=== PATIENT | female | born 1945 | race Asian ===

== ENCOUNTER 2016-12-06 08:14 | Emergency (ER) | payer OTHER ==
[~2016-12-06] VITALS: Ht 157.5 cm; Wt 49.9 kg
[2016-12-06] MEDS ORDERED: SODIUM CHLORIDE 0.9% 1,000 ML IV ONE ×2 (09:09)
[2016-12-06 09:23] LABS: Base Excess -4.4 mmol/L (-2.0-2.0); Blood 02Sat 97.6 % (96-100); Blood COHb 0.3 % (0.5-1.5); Blood MetHb 0.1 % (0.0-1.5); HCO3 20.2 mmol/L (22-26.0); HHb 2.4 % (0.0-5.0); MODE NASAL CANNULA; O2Hb 97.2 % (94.0-97.0); PCO2 35.7 mmHg (35.0-45.0); PCO2(T) 35.7 mmHg (35.0-45.0); PO2 144.4 mmHg (80.0-100.0); PO2(T) 144.4 mmHg (80.0-100.0); Sample Type Arterial
[2016-12-06] MEDS ORDERED: MIDAZOLAM DRIP 50 mg/50mL 50 ML IV ONE (09:34)
[2016-12-06] MEDS ORDERED: ETOMIDATE (2MG/ML) 20ML VIAL IV ONE ×2 (09:34→09:45)
[2016-12-06] MEDS ORDERED: MIDAZOLAM DRIP 50 mg/50mL 50 ML IV SCH (09:37)
[2016-12-06 09:39] LABS: Urine RBC None Seen /hpf (0 - 4)
[2016-12-06 09:50] LABS: Hematocrit 37.3 % (36.0-46.0); Hemoglobin 12.3 g/dL (12.2-16.2); Mean Corpuscular Hemoglobin 30.3 pg (28.0-32.0); Mean Corpuscular Volume 91.8 fL (80.0-100.0); Platelet Count (auto) 265 10^3/uL (140-450); Red Cell Distribution Width 12.5 % (11.8-14.3); White Blood Cell 16.4 10^3/uL (4.4-10.8)
[2016-12-06 09:54] LABS: Urine Bilirubin Negative (Negative); Urine Blood Negative /uL (Negative); Urine Color Yellow (Yellow); Urine Glucose 4+ mg/dL (Normal); Urine Hyaline Cast FEW /lpf (0 - 2); Urine Ketone 1+ (Negative); Urine Mucus FEW (None Seen); Urine Nitrite Negative (Negative); Urine Urobilinogen Normal (Negative)
[2016-12-06 09:58] LABS: Metamyelocytes % 0; Myelocytes % 0; Promyelocytes % 0; Reactive Lymphocytes 0
[2016-12-06] MEDS ORDERED: PROPOFOL 100 ML IV ONE (09:58)
[2016-12-06 10:00] LABS: INR 0.94 (0.9-1.15); Partial Thromboplastin Time 22.9 sec (22.64-33.71); Prothrombin Time 10.2 sec (9.37-12.3)
[2016-12-06] MEDS ORDERED: PROPOFOL 100 ML IV SCH (10:02)
[2016-12-06] MEDS ORDERED: PANTOPRAZOLE 80 MG in SODIUM CHL 0.9% 60 ML IV ONE (10:15)
[2016-12-06 10:28] LABS: Albumin 3.5 g/dL (3.4-5.0); BUN/Creatinine Ratio 13.5; Calcium 7.7 mg/dL (8.5-10.1); Potassium 4.1 mmol/L (3.5-5.1)
[2016-12-06 10:52] LABS: Bilirubin, Total 0.3 mg/dL (0.2-1.0); Total Protein 6.8 g/dL (6.4-8.2)
[2016-12-06 11:06] LABS: B-Type Natriuretic Peptide 95.18 pg/mL (0-100)
[2016-12-06 11:12] LABS: Platelet Clumps FEW; Platelet Estimate Adequate
[2016-12-06 11:14] LABS: Temperature: 24.3 C (20.0-25.0)
[2016-12-06 11:50] VITALS: BP 108/74
[2016-12-06 12:03] LABS: Base Excess -0.9 mmol/L (-2.0-2.0); Blood 02Sat 86.1 % (96-100); Blood COHb 0.2 % (0.5-1.5); Blood MetHb 0.1 % (0.0-1.5); HCO3 24.7 mmol/L (22-26.0); HHb 13.9 % (0.0-5.0); MODE VENT - A/C; O2Hb 85.8 % (94.0-97.0); PCO2 44.7 mmHg (35.0-45.0); PCO2(T) 44.7 mmHg (35.0-45.0); PO2 53.6 mmHg (80.0-100.0); PO2(T) 53.6 mmHg (80.0-100.0); Sample Type Arterial
== END 2016-12-06 12:37 | disposition short-term general hospital (02) ==
LOC: EDBD 08:14 → ER 08:14
DX: G93.41 Metabolic encephalopathy (principal); K92.2 Gastrointestinal hemorrhage, unspecified; I10 Essential (primary) hypertension; I25.2 Old myocardial infarction
CPT/HCPCS: 31500; 36415; 36600; 70450; 71010; 80053; 80307; 81001; 82805; 82962; 83880; 84484; 85007; 85027; 85610; 85730; 93005; 96365; 99291; C9113; J2250; J2704; 94002